=== PATIENT | male | born 1970 | race Caucasian/White ===

== ENCOUNTER 2021-04-29 09:12 | Emergency (ER) | payer SELFPAY ==
[2021-04-29 09:19] VITALS: BP 146/99; PULSE 75; RESP 16; TEMP 36.8; O2SAT 99; BMI 33.8
--- NOTE | 2021-04-29 09:29 | ECG_ITS ---
[facility] Test Date: 2021-04-29 Pat Name: Luis Francisco Department: Room: Gender: Male [employer] Professor: : 1970 Requested By: Zain Gomez Order Number: [id number] Pena MD: Yasmine Lobato M.D. Measurements Intervals [place] Rate: 77 P: 9 DE: 153 QRS: -25 QRSD: 114 T: 30 QT: 386 QTc: 439 Interpretive Statements SINUS RHYTHM POSSIBLE LEFT VENTRICULAR HYPERTROPHY [VOLTAGE CRITERIA PLUS LAE OR QRS WIDENING] POSSIBLE LATERAL MYOCARDIAL INFARCTION [30 ms Q WAVE IN I/aVL/V5/V6], OF INDETERMINATE AGE ARTIFACT No previous ECG available for comparison Electronically Signed On 04-29-2021 13:46:15 CDT by Yasmine Lobato M.D. [id number]
--- NOTE | 2021-04-29 09:29 | XR_ITS ---
WS: [id number] XR chest 1V portable [id number] REASON FOR EXAM: Chest Pain FINDINGS: The heart and the mediastinum are within normal limits. There is calcified granulomatous disease bilaterally. No active pulmonary parenchymal or pleural dise ase is identified. The bony thorax is intact. XR/XR chest 1V portable [id number] IMPRESSION: No acute chest abnormality identified.
--- NOTE | 2021-04-29 09:30 | W.ED.CHESTPA ---
HPI - Chest Pain General: Chief Complaint: Chest Pain Stated Complaint: SOB, severe Chest pain, Time Seen by Provider: 04/29/21 09:26 History of Present Illness: HPI narrative: This patient is a 50-year-old male who presents to the emergency department concerns that he might of had a heart attack on Thursday.. Patient states that he was having significant chest pain while laying in bed. And states Thursday he felt like he just could not breathe very well and just had no energy all day long. Patient states he felt pretty good yesterday but then today he was gone to his worksite. 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 Patient states he is 50 years old and has had 2 brothers has had heart attacks at younger ages than him. Patient really believes he might of had a heart attack. Will do medical evaluation treat as needed MD complaint: chest heaviness and chest discomfort Onset (ago): day(s) Timing of current episode: episodic Prior episodes: Yes Onset: during rest Pain location: substernal Pain radiation: none Severity: moderate Quality: tightness, heaviness and dull Relieving factors: nothing Exacerbating factors: nothing Associated symptoms: Deny abdominal pain, dyspnea, fever(s), nausea, palpitations or vomiting Review of Systems General: Reports: 10 or more systems reviewed and unremarkable except in HPI and below Const: Reports: fatigue; Denies: fever(s), chills or body aches Eyes: Denies: change in vision or blurry vision ENMT: Denies: throat pain, hoarseness or mouth pain Card: Reports: chest pain and dyspnea on exertion; Denies: palpitations, irregular heart rhythm, edema, swelling of feet/ankles or lightheadedness Resp: Denies: dyspnea, productive cough, non-productive cough, wheezing or pain on inspiration GI: Denies: abdominal pain, nausea or vomiting : Denies: flank pain, dysuria, urinary frequency, urinary urgency or urinary hesitancy Musc: Denies: neck pain, back pain, extremity pain, extremity swelling, joint pain, joint swelling, joint redness, joint warmth or limited range of motion Skin/Breast: Denies: rash, pruritus, erythema or skin tenderness Neuro: Denies: headache(s), numbness in extremities or weakness in extremities Psych: Denies: anxiety or depression Physical Exam Const: COMMON NORMALS: no acute distress, average body habitus, patient oriented x3, no limitations, healthy appearing, alert and well nourished HENMT: COMMON NORMALS: normocephalic, atraumatic, hearing grossly normal bilaterally, external ears normal, EAC's normal, TM's normal bilaterally, Normal external nose present, Normal nasal mucous membranes and turbinates present, moist oral mucous membranes, oropharynx normal, dentition normal and gingiva normal HEAD & SCALP: normocephalic and atraumatic NOSE: Normal external nose present and Normal nasal mucous membranes and turbinates present EXTERNAL EAR: Yes external ears normal EXTERNAL AUDITORY CANAL: EAC's normal TYMPANIC MEMBRANE: TM's normal bilaterally Neck/C-Spine: COMMON NORMALS: full ROM, no lymphadenopathy, supple, no meningeal signs, no JVD, Thyroid normal and No carotid bruits THYROID: Thyroid normal Chest: COMMONS NORMALS: normal inspection of the chest, normal palpation of entire chest wall, normal inspection of the breasts and normal palpation of the breasts Breast/axilla inspection: Yes normal inspection of the breasts BREAST/AXILLA PALPATION: Yes normal palpation of the breasts Resp: COMMON NORMALS: normal respiratory effort, No retractions, No use of accessory muscles, clear to auscultation bilaterally and percussion normal AUSCULTATION: clear to auscultation bilaterally PERCUSSION: percussion normal Cardio: COMMON NORMALS: no JVD, regular rate, regular rhythm, S1 normal heart sound present, S2 normal heart sound present, No gallops present (Cardio), No clicks present (Cardio), No murmurs present (Cardio), No rub (Cardio) and Peripheral pulses 2+ throughout RATE: regular rate RHYTHM: regular rhythm HEART SOUNDS: S1 normal heart sound present and S2 normal heart sound present PERIPHERAL PULSES: Peripheral pulses 2+ throughout GI: COMMON NORMALS: Normal to inspection, nondistended, normoactive bowel sounds present, Soft to palpation, non-tender, No hepatosplenomegaly present, no masses and no bruits PALPATION: Yes Soft to palpation and Yes No hepatosplenomegaly present : COMMON NORMALS: Yes no CVA tenderness BLADDER/KIDNEY EXAM: Yes no CVA tenderness Back/Pelvis: COMMON NORMALS: no CVA tenderness, thoracic and lumbar spine normal to inspection, no thoracic nor lumbar tenderness, thoraco-lumbar ROM normal and straight leg raise negative bilaterally Extremity: COMMON NORMALS: normal to inspection, full ROM, capillary refill normal, no joint enlargement, no clubbing, cyanosis or edema, no calf tenderness and no pedal edema Neuro: COMMON NORMALS: patient oriented x3 SENSORIUM/ORIENTATION: Yes alert MENINGEAL SIGNS: Yes no meningeal signs Course Reevaluation(s): Reevaluation #1: Negative evaluation in the emergency department for any acute findings. Negative troponin -2-hour troponin. Patient sitting on side of bed does not appear to be in acute distress. All vital signs are stable. Patient be discharged home patient is advised to follow-up with primary care physician in 2 to 3 days. May need to schedule an outpatient stress test. Time: 12:23 Vital Signs: Vital signs: Vital Signs Temperature 98.2 F 04/29/21 09:19 Pulse Rate 62 04/29/21 12:06 Respiratory Rate 12 04/29/21 12:06 Blood Pressure 122/95 04/29/21 12:06 Pulse Oximetry 98 04/29/21 12:06 MDM - Chest Pain MDM Narrative: Medical decision making narrative: his patient is a 50-year-old male who presents to the emergency department concerns that he might of had a heart attack on Thursday.. Patient states that he was having significant chest pain while laying in bed. And states Thursday he felt like he just could not breathe very well and just had no energy all day long. Patient states he felt pretty good yesterday but then today he was gone to his worksite. 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 Patient states he is 50 years old and has had 2 brothers has had heart attacks at younger ages than him. Patient really believes he might of had a heart attack. Will do medical evaluation treat as needed Negative evaluation in the emergency department for any acute findings. Negative troponin -2-hour troponin. Patient sitting on side of bed does not appear to be in acute distress. All vital signs are stable. Patient be discharged home patient is advised to follow-up with primary care physician in 2 to 3 days. May need to schedule an outpatient stress test. Lab Data: Labs: Lab Results 04/29/21 04/29/21 04/29/21 Range/Units 09:40 09:40 09:40 WBC 9.3 (4.0-10.0) 10^3/ uL RBC 5.48 H (4.1-5.3) 10^6/u L Hgb 16.5 (11.7-16.6) g/dL Hct 50.9 (42.0-52.0) % MCV 92.9 (80-94) fL MCH 30.1 (28.0-34.0) pg MCHC 32.4 (30.0-36.0) g/dL RDW 12.4 (12.1-15.1) % Plt Count 313 (130-400) 10^3/c mm MPV 9.9 (7.4-10.4) fL Neut % (Auto) 66.4 % Lymph % (Auto) 25.1 % [place] % (Auto) 6.5 % Eos % (Auto) 1.6 % Baso % (Auto) 0.1 % Neut # (Auto) 6.15 (1.8-7.7) 10^3/u L Lymph # (Auto) 2.3 (0.8-4.8) 10^3/u L Hudson # (Auto) 0.6 (0.2-0.9) 10^3/u L Eos # (Auto) 0.2 (0.0-0.8) 10^3/u L Baso # (Auto) 0.0 (0.0-0.1) 10^3/u L Nucleated RBC % (a uto) 0 % Nucleated RBCs # 0.0 /100WBC PT 11.70 L (12.1-14.9) SECO NDS INR 0.83 (0.8-1.2) APTT 22.6 L (23.9-36.7) SECO NDS D-Dimer 0.52 (0-0.59) ug/mIFE U Sodium 136 (136-145) mmol/L Potassium 3.9 (3.5-5.1) mmol/L Chloride 101 (98-107) mmol/L Carbon Dioxide 21 L (22-29) mmol/L Anion Gap 17.9 (5-19) BUN 13 (6-20) mg/dL Creatinine 0.8 (0.7-1.2) mg/dL GFR Calculation 103.2 (90-130) mL/min Glucose 124 H (65-115) mg/dL Calculated Osmolal ity 284 L (285-295) mOsm/k g Calcium 10.1 (8.5-10.5) mg/dL Total Bilirubin 0.2 (0.15-1.2) mg/dL AST 14 (0-40) U/L ALT 14 (0-41) U/L Alkaline Phosphata se 79 (40-130) IU/L Creatine Kinase 42 (39-308) U/L Troponin T Baselin e (0-15) ng/L Troponin T 120 Min [place] (0-15) ng/L Delta Troponin T (0-10) ABS# NT-Pro-B Natriuret Pep 9 (0-125) pg/mL Total Protein 7.5 (6.6-8.7) g/dL Albumin 4.5 (3.5-5.2) g/dL Globulin 3.0 (1.3-4.6) g/dL Urine Color (Yellow) Urine Appearance (CLEAR) Urine pH (5-7) Ur Specific Gravit y (1.005-1.030) Urine Protein (Negative) Urine Glucose (UA) (Normal) Urine Ketones (Negative) Urine Blood (Negative) Urine Nitrate (Negative) Urine Bilirubin (Negative) Urine Urobilinogen (Negative) mg/dL Ur Leukocyte Mikaela ase (Negative) Urine Opiates Scre en (Negative) ng/mL Ur Barbiturates Sc reen (Negative) ng/mL Ur Phencyclidine S crn (Negative) ng/mL Ur Amphetamines Sc reen (Negative) ng/mL U Benzodiazepines Scrn (Negative) ng/mL Urine Cocaine Scre en (Negative) ng/mL U Marijuana (THC) Screen (Negative) ng/mL 04/29/21 04/29/21 04/29/21 Range/Units 09:40 09:59 09:59 WBC (4.0-10.0) 10^3/ uL RBC (4.1-5.3) 10^6/u L Hgb (11.7-16.6) g/dL Hct (42.0-52.0) % MCV (80-94) fL MCH (28.0-34.0) pg MCHC (30.0-36.0) g/dL RDW (12.1-15.1) % Plt Count (130-400) 10^3/c mm MPV (7.4-10.4) fL Neut % (Auto) % Lymph % (Auto) % Hudson % (Auto) % Eos % (Auto) % Baso % (Auto) % Neut # (Auto) (1.8-7.7) 10^3/u L Lymph # (Auto) (0.8-4.8) 10^3/u L [place] # (Auto) (0.2-0.9) 10^3/u L Eos # (Auto) (0.0-0.8) 10^3/u L Baso # (Auto) (0.0-0.1) 10^3/u L Nucleated RBC % (a uto) % Nucleated RBCs # /100WBC PT (12.1-14.9) SECO NDS INR (0.8-1.2) APTT (23.9-36.7) SECO NDS D-Dimer (0-0.59) ug/mIFE U Sodium (136-145) mmol/L Potassium (3.5-5.1) mmol/L Chloride (98-107) mmol/L Carbon Dioxide (22-29) mmol/L Anion Gap (5-19) BUN (6-20) mg/dL Creatinine (0.7-1.2) mg/dL GFR Calculation (90-130) mL/min Glucose (65-115) mg/dL Calculated Osmolal ity (285-295) mOsm/k g Calcium (8.5-10.5) mg/dL Total Bilirubin (0.15-1.2) mg/dL AST (0-40) U/L ALT (0-41) U/L Alkaline Phosphata se (40-130) IU/L Creatine Kinase (39-308) U/L Troponin T Baselin e 6 (0-15) ng/L Troponin T 120 Min [place] (0-15) ng/L Delta Troponin T (0-10) ABS# NT-Pro-B Natriuret Pep (0-125) pg/mL Total Protein (6.6-8.7) g/dL Albumin (3.5-5.2) g/dL Globulin (1.3-4.6) g/dL Urine Color Straw (Yellow) Urine Appearance Clear (CLEAR) Urine pH 5 (5-7) Ur Specific Gravit y 1.020 (1.005-1.030) Urine Protein Neg (Negative) Urine Glucose (UA) Norm (Normal) Urine Ketones Negative (Negative) Urine Blood Neg (Negative) Urine Nitrate Negative (Negative) Urine Bilirubin Neg (Negative) Urine Urobilinogen Norm (Negative) mg/dL Ur Leukocyte Mikaela ase Negative (Negative) Urine Opiates Scre en Negative (Negative) ng/mL Ur Barbiturates Sc reen Negative (Negative) ng/mL Ur Phencyclidine S crn Negative (Negative) ng/mL Ur Amphetamines Sc reen Negative (Negative) ng/mL U Benzodiazepines Scrn Negative (Negative) ng/mL Urine Cocaine Scre en Negative (Negative) ng/mL U Marijuana (THC) Screen Negative (Negative) ng/mL 04/29/21 Range/Units 11:50 WBC (4.0-10.0) 10^3/ uL RBC (4.1-5.3) 10^6/u L Hgb (11.7-16.6) g/dL Hct (42.0-52.0) % MCV (80-94) fL MCH (28.0-34.0) pg MCHC (30.0-36.0) g/dL RDW (12.1-15.1) % Plt Count (130-400) 10^3/c mm MPV (7.4-10.4) fL Neut % (Auto) % Lymph % (Auto) % [place] % (Auto) % Eos % (Auto) % Baso % (Auto) % Neut # (Auto) (1.8-7.7) 10^3/u L Lymph # (Auto) (0.8-4.8) 10^3/u L [place] # (Auto) (0.2-0.9) 10^3/u L Eos # (Auto) (0.0-0.8) 10^3/u L Baso # (Auto) (0.0-0.1) 10^3/u L Nucleated RBC % (a uto) % Nucleated RBCs # /100WBC PT (12.1-14.9) SECO NDS INR (0.8-1.2) APTT (23.9-36.7) SECO NDS D-Dimer (0-0.59) ug/mIFE U Sodium (136-145) mmol/L Potassium (3.5-5.1) mmol/L Chloride (98-107) mmol/L Carbon Dioxide (22-29) mmol/L Anion Gap (5-19) BUN (6-20) mg/dL Creatinine (0.7-1.2) mg/dL GFR Calculation (90-130) mL/min Glucose (65-115) mg/dL Calculated Osmolal ity (285-295) mOsm/k g Calcium (8.5-10.5) mg/dL Total Bilirubin (0.15-1.2) mg/dL AST (0-40) U/L ALT (0-41) U/L Alkaline Phosphata se (40-130) IU/L Creatine Kinase (39-308) U/L Troponin T Baselin e (0-15) ng/L Troponin T 120 [place] 6.00 (0-15) ng/L Delta Troponin T 0 (0-10) ABS# NT-Pro-B Natriuret Pep (0-125) pg/mL Total Protein (6.6-8.7) g/dL Albumin (3.5-5.2) g/dL Globulin (1.3-4.6) g/dL Urine Color (Yellow) Urine Appearance (CLEAR) Urine pH (5-7) Ur Specific Gravit y (1.005-1.030) Urine Protein (Negative) Urine Glucose (UA) (Normal) Urine Ketones (Negative) Urine Blood (Negative) Urine Nitrate (Negative) Urine Bilirubin (Negative) Urine Urobilinogen (Negative) mg/dL Ur Leukocyte Mikaela ase (Negative) Urine Opiates Scre en (Negative) ng/mL Ur Barbiturates Sc reen (Negative) ng/mL Ur Phencyclidine S crn (Negative) ng/mL Ur Amphetamines Sc reen (Negative) ng/mL U Benzodiazepines Scrn (Negative) ng/mL Urine Cocaine Scre en (Negative) ng/mL U Marijuana (THC) Screen (Negative) ng/mL EKG Data^: EKG 1: Attestation: I personally reviewed and interpreted this EKG as follows: EKG interpretation date: 04/29/21 EKG interpretation time: 09:21 Prior EKG tracings: not available for review Interpretation: Sinus rhythm with a heart rate of 77 possible left ventricle hypertrophy. Nonspecific EKG changes. Discharge Plan Discharge Patient Disposition: Home Clinical Impression: Chest pain, Encounter for medical screening examination Condition: Stable Prescriptions: No Action Aspir-81 81 mg Tablet,Delayed Release (Dr/Ec) 81 mg PO ONCE RF: 0 ibuprofen 200 mg Tablet 1,000 mg PO PRN RF: 0 Discharge Orders: Discharge ED (Routine); Ordered 04/29/21 Ordered By: Zain Gomez Referrals: Mitul Person MD [Primary Care Provider] - Discharge Diet: Advance as tolerated Discharge Activity: Resume usual activity and Increase activity as tolerated Patient Instructions: Opioid Safety Activity Restrictions/Additional Instructions: Encourage p.o. fluids. Follow-up primary care physician in 2 to 3 days. For full screening exam. May need outpatient stress test. Continue all home medications. Coding Level of Care Code ED Photographic Hand Developer for Chg Fwd Exam Comprehensive
[2021-04-29 09:46] VITALS: BP 156/96; PULSE 74; RESP 22; O2SAT 97
[2021-04-29 10:02] LABS: Basophils % 0.1 %; Eosinophils # 0.2 10^3/uL (0.0-0.8); Eosinophils % 1.6 %; Hematocrit 50.9 % (42.0-52.0); Hemoglobin 16.5 g/dL (11.7-16.6); Lymphocytes # 2.3 10^3/uL (0.8-4.8); Lymphocytes % 25.1 %; Mean Corpuscular HGB Conc 32.4 g/dL (30.0-36.0); Mean Corpuscular Hemoglobin 30.1 pg (28.0-34.0); Mean Corpuscular Volume 92.9 fL (80-94); Mean Platelet Volume 9.9 fL (7.4-10.4); Monocytes # 0.6 10^3/uL (0.2-0.9); Monocytes % 6.5 %; Neutrophils # 6.15 10^3/uL (1.8-7.7); Neutrophils % 66.4 %; Nucleated Red Blood Cells % 0 %; Platelet Count 313 10^3/cmm (130-400); Red Blood Count 5.48 10^6/uL (4.1-5.3); Red Cell Distribution Width 12.4 % (12.1-15.1); White Blood Count 9.3 10^3/uL (4.0-10.0)
[2021-04-29] MEDS: aspirin 81 mg Chew Tablet 324 MG PO (10:04)
[2021-04-29 10:07] LABS: Add Urine Microscopic? NO; Charge for UA Resulting for Rev
[2021-04-29 10:21] LABS: INR 0.83 (0.8-1.2); Partial Thromboplastin Time 22.6 SECONDS (23.9-36.7)
[2021-04-29 10:24] LABS: D Dimer 0.52 ug/mIFEU (0-0.59)
[2021-04-29 10:34] LABS: Troponin(5th) Baseline 6 ng/L (0-15)
[2021-04-29 10:37] LABS: Bilirubin Urine Neg (Negative); Blood Urine Neg (Negative); Glucose Urine UA Norm (Normal); Ketones Urine Negative (Negative); Leukocyte Esterase Urine Negative (Negative); Nitrate Urine Negative (Negative); Protein Urine Neg (Negative); Urine Appearance Clear (CLEAR); Urine Color Straw (Yellow); Urobilinogen Urine Norm (Negative); pH Urine 5 (5-7)
[2021-04-29 10:40] LABS: Alanine Aminotransferase 14 U/L (0-41); Albumin Level 4.5 g/dL (3.5-5.2); Alkaline Phosphatase 79 IU/L (40-130); Anion Gap 17.9 (5-19); Aspartate Amino Transferase 14 U/L (0-40); Blood Urea Nitrogen 13 mg/dL (6-20); Calcium 10.1 mg/dL (8.5-10.5); Carbon Dioxide 21 mmol/L (22-29); Chloride 101 mmol/L (98-107); Creatine Phosphokinase 42 U/L (39-308); Glomerular Filtration Rate 103.2 mL/min (90-130); Glucose 124 mg/dL (65-115); NT Pro B Type Natriuretic Pept 9 pg/mL (0-125); Osmolality Calculated 284 mOsm/kg (285-295); Potassium 3.9 mmol/L (3.5-5.1); Sodium 136 mmol/L (136-145); Total Bilirubin 0.2 mg/dL (0.15-1.2); Total Protein 7.5 g/dL (6.6-8.7)
[2021-04-29 10:40] LABS: Amphetamines Screen Urine Negative (Negative); Barbiturates Screen Urine Negative (Negative); Benzodiazepines Screen Urine Negative (Negative); Cocaine Screen Urine Negative (Negative); Opiate Screen Urine Negative (Negative); PCP Screen Urine Negative (Negative); THC Screen Urine Negative (Negative)
[2021-04-29 11:20] VITALS: BP 117/77; PULSE 60; RESP 17; O2SAT 94
[2021-04-29 12:06] VITALS: BP 122/95; PULSE 62; RESP 12; O2SAT 98
[2021-04-29 12:12] LABS: Troponin 5 2HR Delta 0 ABS# (0-10)
[2021-04-29 13:03] VITALS: BP 108/78; PULSE 64; RESP 12; O2SAT 96
== END 2021-04-29 13:03 | disposition home or self-care (01) ==
PROVIDERS: Emergency Provider Emergency Medicine; PCP Family Medicine
DX: R07.9 Chest pain, unspecified (principal); Z79.82 Long term (current) use of aspirin; Z82.49 Family history of ischemic heart disease and other diseases of the circulatory system
CPT/HCPCS: 36415; 71045; 80053; 80306; 81003; 82550; 83880; 84484; 85025; 85378; 85610; 85730; 93005; 99284

== ENCOUNTER → 2023-07-23 14:10 | Outpatient (BNVA) | payer OTHER, SELFPAY | PROVIDERS: PCP Family Medicine; Visit Provider Student in an Organized Health Care Education/Training Program | DX: S56.422A Laceration of extensor muscle, fascia and tendon of left index finger at forearm level, initial encounter; S61.202A Unspecified open wound of right middle finger without damage to nail, initial encounter; W31.89XA Contact with other specified machinery, initial encounter | CPT/HCPCS: 73130 ==

== ENCOUNTER 2023-07-24 12:21 | Day surgery (SDC) | payer OTHER, SELFPAY ==
[2023-07-24] VITALS (16 sets, daily range): BP systolic 132–159; BP diastolic 73–88; PULSE 63–73; RESP 14–16; TEMP 37.1; O2SAT 98–99; BMI 36.8
--- NOTE | 2023-07-24 | XR_ITS ---
WS: [id number] Exam: XR finger LT min 2V [id number] Date/Time of Exam: 07/24/2023 12:00 AM Reason For Exam: [employer] AP and lateral C-arm images of the LEFT middle finger are submitted. Images depict pin fixati on across the DIP joint of the third finger with postoperative changes in the adjacent soft tissues.
--- NOTE | 2023-07-24 12:59 | P.ANESASSM_ITS ---
Pre-Anesthetic Assessment Height/Weight: Height 1.7 m Weight 106.594 kg O2 Del Method Room Air 07/24/23 12:45 Preop Diagnosis: Left middle finger zone 1 extensor tendon laceration Operation Date: 07/24/23 14:50 Proposed Procedures p Wound Exploration: Left middle finger laceration exploration(Left) - DO vianey Alvarez Tendon Repair Finger Extensor Tendon Repair Finger: irrigation and debridement, extensor tendon repair(Left) - DO vianey Alvarez ORIF Finger: open reduction internal fixation of distal interphalangeal mumtaz nt(Left) - Rah Beyer DO Familial anesthetic complications: None Was Beta Nathan taken within 24 hours: N/A Was Clonidine taken within 24 hours: N/A Last intake: Intake Last Liquid Date 07/24/23 Last Liquid Time 09:00 Last Solid Date 07/23/23 Last Solid Time 19:00 Social Tobacco and No alcohol smokeless tobacco Exam alert, oriented x 3, clear to auscultation bilaterally and regular rate & rhythm Airway Mallampati: Class III Dentition: full Anesthetic Plan ASA status: 3 Anesthesia: Local Only Risk of > 500 ml blood loss (7ml/kg in children): No Other Pertinent Information no anesthesia, local only Medications/Allergies Home Medications Medication Instructions Recorded Confirmed Last Taken Type aspirin 81 mg tablet,delayed 81 mg PO ONCE 04/29/21 07/23/23 04/27/21 History release 162 MG ibuprofen 200 mg tablet 1,000 mg PO PRN 04/29/21 07/24/23 Unknown History amoxicillin 500 mg capsule 500 mg PO BID 07/23/23 07/23/23 Unknown History Allergies Allergy/AdvReac Type Severity Reaction Status Date / Time Penicillins Allergy Unknown Verified 07/23/23 14:04 [facility] Anesthesia Social History (Updated 07/23/23 @ 14:06 by Traci Miller LPN) Smoking and tobacco/nicotine status: current every day tobacco/nicotine user smokeless tobacco Alcohol intake: current Alcohol intake frequency: few times a month Data Anesthesia Cardiac Studies: No Data to Display
[2023-07-24] MEDS: acetaminophen 1,000 MG/100 ML PIGGYBACK 400 MG IV (13:02)
[2023-07-24] MEDS: ketorolac 30 mg/mL INJ IVP (13:03)
[2023-07-24] MEDS: sodium chloride 0.9% 1,000 ML 30 ML IV (13:07)
--- NOTE | 2023-07-24 15:32 | W.PM.OPSUD ---
Surgery/Procedure H&P Update DATE OF PROCEDURE: July 24, 2023 DATE H&P PERFORMED: 07/23/23 H&P UPDATE INFORMATION: I have reviewed H&P completed within last 30 days, I have examined patient prior to procedure and No changes to prior documentation PREOP DIAGNOSIS: Left middle finger zone 1 extensor tendon laceration PRIMARY INDICATION FOR PROCEDURE: Left middle finger zone 1 extensor tendon laceration PLANNED PROCEDURE: Operation Date: 07/24/23 14:50 Proposed Procedures p Wound Exploration: Left middle finger laceration exploration(Left) - DO vianey Alvarez Tendon Repair Finger Extensor Tendon Repair Finger: irrigation and debridement, extensor tendon repair(Left) - DO vianey Alvarez ORIF Finger: open reduction internal fixation of distal interphalangeal joint(Left) - Rah Beyer DO
[2023-07-24] MEDS: ceFAZolin 2,000 MG in sodium chloride 0.9% (plus) 50 ML 100 MG IV (15:50)
[2023-07-24] MEDS: lidocaine 2% INJ 20 mL 12 ML INJECTION (16:01)
[2023-07-24] MEDS: ROPivacaine 0.5% SDV 30 mL 60 MG INJECTION (16:01)
--- NOTE | 2023-07-24 16:56 | W.PM.BPON ---
Date of Procedure: 07/24/2023 Surgeon: Rah Beyer DO Senior Applications Architect(s): None Procedure(s) performed: Left middle finger laceration exploration Left middle finger irrigation debridement of skin subcutaneous tissue tendon and bone (1 cm x 0.25 cm x 0.25 cm Left middle finger extensor tendon repair Left middle finger distal interphalangeal joint open reduction internal fixation with K wire Findings of the procedure(s): Left middle finger zone 1 extensor tendon injury, left middle finger extensor tendon repair went as planned with K wire fixation of distal interphalangeal joint to hold extension and protect repair Estimated blood loss: 1 cc Specimen(s) removed: None Post-operative diagnosis: Left middle finger zone 1 extensor tendon injury
--- NOTE | 2023-07-24 16:59 | P.OP_ITS ---
Operative Report Date of procedure: July 24, 2023 Pre-op diagnosis: Left middle finger zone 1 extensor tendon laceration Post-op diagnosis: Same Procedure done: Left middle finger laceration exploration Left middle finger irrigation debridement of skin subcutaneous tissue tendon and bone (1 cm x 0.25 cm x 0.25 cm Left middle finger extensor tendon repair Left middle finger distal interphalangeal joint open reduction internal fixation with K wire Implants: 1 x 0.45 K wire Surgeon: Rah Beyer DO Anesthesia: Local Estimated blood loss: 1cc Turnicot was used 36 minutes IV fluids: 100 mL Complications: None Findings: See operative report narrative Condition: stable Disposition: same day Brief History: Patient was seen and evaluated worked up in the outpatient setting 52-year-old male sustained laceration of left middle finger zone 1 and has a zone 1 extensor tendon laceration we talked about his treatment options in detail he has been on appropriate antibiotics. His incision sites well healed no signs of infection at this point in time we talked about treatment options and through shared decision-making he elects to proceed with surgical intervention of the left middle finger wound will exploration irrigation debridement and plan for tendon repair. He understands the ins and outs procedure risk benefits complication alternatives surgery through shared decision make elects proceed with surgical intervention all questions answered. Procedure: Patient seen eval in the preoperative holding area. Consent was reviewed and signed with patient correct extremity marked. Patient elected proceed with local anesthesia. He was then taken back to the operative suite kept on [facility] armboard applied left arm. He then subsequently was prepped and draped in standard orthopedic fashion. Final timeout performed. Patient received appropriate preoperative antibiotics. Finger turnicot was used and placed the left middle finger. Patient's previous oblique laceration over zone 1 was then reopened up and explored. He was found to have complete extensor tendon laceration with appropriate distal stump and proximal stump. Utilized dissection scissors as well as rongeur and curettage to debride subcutaneous tissue fascia fat and bone nose all devitalized and took this to healthy tissue. At this point time I then thoroughly irrigated the wound bed. Once this was completed I was prepped for tendon repair. In order to hold the finger in appropriate position I elected to place a 0.45 K wire which was placed in retrograde fashion up along the DIP joint in center center position to maintain perfect joint congruity and hold extension to protect my repair. This was then cut bent and capped in appropriate position once this was then done I proceeded with my tendon repair I utilized dissection scissors to mobilize both ends of the tendon then this was then subsequently reapproximated utilizing 4-0 Prolene suture in standard tendon repair fashion. This had excellent tendon approximation and no evidence of tendon gapping. Finger turnicot was then removed hemostasis was satisfactory. I then subsequently irrigated the wound bed. Reapproximated the skin edge with interrupted nylon suture. Finger was then appropriately dressed and a tip protector with AlumaFoam splint was then applied along the middle finger. Patient was then taken to PACU in stable condition. Patient taken to PACU in stable condition recovering well. Patient received appropriate discharge structure as well as pain medication and a new order of antibiotics postoperatively. We will follow-up with us in the office in 2 weeks plan to keep this pin in place for 6 weeks and have this removed in the office. Sutures may be removed at 2 weeks along skin. Patient understands agrees with current plan. Questions answered.
--- NOTE | 2023-07-24 17:19 | SUR.OPER ---
FINGER TOURNIQUET APPLIED AT 1604, REMOVED AT 1640. 36 MINUTES. PTS UPDATED AT 1638
== END 2023-07-24 17:25 | disposition home or self-care (01) ==
PROVIDERS: Visit Provider Student in an Organized Health Care Education/Training Program
PROC: (CPT 26418; principal; 2023-07-24 14:40)
PROC: (CPT 26418; 2023-07-24 14:40)
PROC: (CPT 26418; 2023-07-24 14:40)
DX: S56.424A Laceration of extensor muscle, fascia and tendon of left middle finger at forearm level, initial encounter (principal); W26.8XXA Contact with other sharp object(s), not elsewhere classified, initial encounter; F17.200 Nicotine dependence, unspecified, uncomplicated
CPT/HCPCS: 26418; 26746; 73140; 76000; C1713; J0131; J0690; J1885; J2795; J7030

== ENCOUNTER → 2023-08-11 15:21 | Outpatient (BNVA) | payer OTHER, SELFPAY | PROVIDERS: Visit Provider Physician Assistant | DX: Z98.890 Other specified postprocedural states; S56.422D Laceration of extensor muscle, fascia and tendon of left index finger at forearm level, subsequent encounter; S61.202D Unspecified open wound of right middle finger without damage to nail, subsequent encounter; X58.XXXD Exposure to other specified factors, subsequent encounter | CPT/HCPCS: 73130 ==

== ENCOUNTER → 2025-08-28 14:16 | Outpatient (BNVA) | payer BC, SELFPAY | PROVIDERS: PCP Family Medicine; Visit Provider Family Medicine | DX: E83.52 Hypercalcemia (principal) | CPT/HCPCS: 82306; 82310; 83970 ==